=== PATIENT | female | born 1965 | race African-American/Black ===

== ENCOUNTER 2020-10-24 09:12 | Emergency (ER) | payer BC ==
[~2020-10-24] VITALS: Ht 162.6 cm; Wt 75.3 kg
[~2020-10-24 09:12] MED LIST: FLEXERIL PO; NATURAL ESTROGEN; VICODIN 5-5001 EACH PO
[2020-10-24 10:12] VITALS: BP 113/67
== END 2020-10-24 10:12 | disposition home or self-care (01) ==
LOC: ER 09:12
DX: U07.1 COVID-19 (principal)